=== PATIENT | male | born 1955 | race Caucasian/White ===

== ENCOUNTER 2018-05-24 20:49 | Emergency (ER) | payer BC ==
[2018-05-24] MEDS ORDERED: Diph,Pert(Acell),Tet Vac 0.5 ML SYR IM ONE (21:03)
[2018-05-24] MEDS ORDERED: CEPHALEXIN 500 MG CAPSULE PO STA (21:28)
--- NOTE | 2018-05-24 21:28 | Emergency Department Record ---
History of Present Illness - General Chief Complaint: Laceration(s) Stated Complaint: LT HAND MIDDLE LAC Time Seen by Provider: 05/24/18 21:24 Source: Patient Mode of Arrival: Ambulatory - History of Present Illness Initial Commments: Patient crushed his dominant hand left middle finger tip between wood and his wood stove. There is a laceration at the tip. He is NOT up to date on his tetanus. Onset/Timin -: Hour(s) Treatments Prior to Arrival: Bandage - [place] Coma Scale Eye Response: (4) Open spontaneously Motor Response: (6) Obeys commands Verbal Response: (5) Oriented [place] Total: 15 - Related Data Hx Tetanus Toxoid Vaccination: No Patient Tetanus UTD (within 5 yrs): No Previous Rx's Medication Instructions Recorded Cephalexin [Keflex] 500 mg PO QID #39 cap 05/24/18 Allergies Allergy/AdvReac Type Severity Reaction Status Date / Time No Known Drug Allergies Allergy Verified 05/24/18 21:02 Travel Screening - Travel/Exposure Within Last 30 Days Have you traveled within the last 30 days?: No - Travel Symptoms Symptom Screening: None Review of Systems Reviewed: No additional complaints except as noted below Constitutional: Reports: As per HPI. Denies: Chills, Fever, Malaise, Night sweats, Weakness, Weight change Eyes: Reports: As per HPI. Denies: Eye discharge, Eye pain, Photophobia, Vision change ENT: Reports: As per HPI. Denies: Congestion, Dental pain, Ear pain, Epistaxis , Hearing loss, Throat pain Respiratory: Reports: As per HPI. Denies: Cough, Dyspnea, Hemoptysis, Stridor, Wheezes Cardiovascular: Reports: As per HPI. Denies: Arrhythmia, Chest pain, Dyspnea on exertion, Edema, Murmurs, Orthopnea, Palpitations, Paroxysmal nocturnal dyspnea, Rheumatic Fever, Syncope Endocrine: Reports: As per HPI. Denies: Fatigue, Heat or cold intolerance, Polydipsia, Polyuria Gastrointestinal: Reports: As per HPI. Denies: Abdominal pain, Constipation, Diarrhea, Hematemesis, Hematochezia, Melena, Nausea, Vomiting Genitourinary: Reports: As per HPI. Denies: Dysuria, Frequency, Hematuria, Incontinence, Retention, Testicular pain, Testicular mass, Urgency Musculoskeletal: Reports: As per HPI. Denies: Arthralgia, Back pain, Gout, Joint swelling, Myalgia, Neck pain Skin: Reports: As per HPI. Denies: Bruising, Change in color, Change in hair/ nails, Lesions, Pruritus, Rash Neurological: Reports: As per HPI. Denies: Abnormal gait, Confusion, Headache, Numbness, Paresthesias, Seizure, Tingling, Tremors, Vertigo, Weakness Psychiatric: Reports: As per HPI. Denies: Anxiety, Auditory hallucinations, Depression, Homicidal thoughts, Suicidal thoughts, Visual hallucinations Hematological/Lymphatic: Reports: As per HPI. Denies: Anemia, Blood Clots, Easy bleeding, Easy bruising, Swollen glands Physical Exam - General General Appearance: Alert, Oriented x3, Cooperative, No acute distress - Head Head exam: Normal inspection - Eye Eye exam: Normal appearance, PERRL, EOMI. negative: Conjunctival injection, Nystagmus Pupils: Normal accommodation - ENT ENT exam: Normal exam, Mucous membranes moist, Normal external ear exam, Normal orophraynx, TM's normal bilaterally Ear exam: Normal external inspection. negative: External canal tenderness Nasal Exam: Normal inspection. negative: Discharge, Sinus tenderness Mouth exam: Normal external inspection, Tongue normal Teeth exam: Normal inspection. negative: Dental caries Throat exam: Normal inspection. negative: Tonsillar erythema, Tonsillar exudate - Neck Neck exam: Normal inspection, Full ROM. negative: Lymphadenopathy, Meningismus , Tenderness - Respiratory Respiratory exam: Normal lung sounds bilaterally. negative: Respiratory distress - Cardiovascular Cardiovascular Exam: Regular rate, Normal rhythm, Normal heart sounds - GI/Abdominal GI/Abdominal exam: Soft, Normal bowel sounds. negative: Tenderness - Rectal Rectal exam: Deferred - exam: Deferred - Extremities Extremities exam: Normal inspection, Full ROM, Normal capillary refill. negative: Tenderness Image of Hand: 1 - laceration to volar aspect at DIP - Back Back exam: Reports: Normal inspection, Full ROM. Denies: Muscle spasm, Rash noted, Tenderness - Neurological Neurological exam: Alert, CN II-XII intact, Normal gait, Oriented X3, Reflexes normal - Psychiatric Psychiatric exam: Normal affect, Normal mood - Skin Skin exam: Dry, Intact, Normal color, Warm Course Vital Signs 05/24/18 20:56 Temperature 98.2 F Pulse Rate 77 Respiratory 18 Rate Blood Pressure 129/84 Pulse Ox 98 - Reevaluation(s) Reevaluation #1: Procedure: Lac Repair 3 cm length. of distal palmar 3rd digit lac of left hand : Digital block of 1% lido no epi. 6 cc total, 3 cc each side with good anesthesia. Sterile prep with shuclenz, draped in sterile fashion. Copious irrigation with no FB, no tendon or bone involved on finger pad region only. Closed skin after trimming excess fat, with #9 5.0 prolene simple interrupted. Patient tolerated procedure well. Explained possible infection, or need for revision if complications occur. 05/24/18 22:28 05/24/18 22:36 Medical Decision Making - Management Options MDM Management: No Additional Work-up Planned - Data Complexity MDM Data: X-Ray Ordered and/or Reviewed (Finger x ray: no frcture or foreign body to finger tip STS noted per radiologist.) Disposition Disposition: Discharge Clinical Impression: Laceration of finger Qualifiers: Encounter type: initial encounter Finger: middle finger Damage to nail status: unspecified Foreign body presence: without foreign body Laterality: left Qualified Code(s): S61.213A - Laceration without foreign body of left middle finger without damage to nail, initial encounter Disposition: Home, Self-Care Condition: (1) Good Instructions: Laceration (ED), Care For Your Stitches (ED), Finger Laceration ( ED) Additional Instructions: Keep finger wound clean dry and covered. No use of left hand until wound healed. Suture removal 14 days. Take keflex as directed until gone. Tylenol alternated with ibuprofen as directed as needed for pain. Elevate finger above heart to avoid throbbing. Change dress when wet, dirty, or needed. Prescriptions: Cephalexin [Keflex] 500 mg PO QID #39 cap Forms: Patient Portal Access Quality - Quality Measures Quality Measures: N/A - Blood Pressure Screening Does Patient Have Any of the Following: No Blood Pressure Classification: Pre-Hypertensive BP Reading Systolic Measurement: 129 Diastolic Measurement: 84 Screening for High Blood Pressure: < Pre-Hypertensive BP, F/U Documented > [ [id number]] Pre-Hypertensive Follow-up Interventions: Follow-up with rescreen every year.
[2018-05-24] MEDS ORDERED: HYDROCODONE/APAP 7.5/325MG TABLET PO ONE (22:28)
--- NOTE | 2018-05-26 09:08 | RADIOLOGY REPORT ---
EXAM: LEFT HAND, THREE VIEWS HISTORY: JAMMED MIDDLE FINGER. LACERATION AT LEVEL OF DIP JOINT. PRIOR CHAIN SAW ACCIDENT INVOLVING WRIST. TECHNIQUE: Three views of the left hand were obtained. Comparison: None. Encounter: Initial. FINDINGS: There is normal bone mineralization. No acute fracture, dislocation , nor destructive bone lesion. 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 There is minor soft tissue swelling of the distal aspect of the third digit. 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 On the lateral view the lunate is dorsally tilted. Surgical clips are noted in the anterolateral soft tissues at the level of the wrist. IMPRESSION: 1. NO ACUTE FRACTURE NOR DISLOCATION. NO RADIOPAQUE FOREIGN BODY. MILD SOFT TISSUE SWELLING OF THE DISTAL THIRD DIGIT. 2. DEGENERATIVE CHANGES, DISCUSSED ABOVE. JOB NUMBER: [id number] [facility]
== END 2018-05-24 22:45 | disposition home or self-care (01) ==
LOC: ER 20:49
DX: S61.213A Laceration without foreign body of left middle finger without damage to nail, initial encounter (principal); W23.1XXA Caught, crushed, jammed, or pinched between stationary objects, initial encounter; Y93.E9 Activity, other interior property and clothing maintenance
CPT/HCPCS: 12042; 90715; 96372; 99283; 99284